=== PATIENT | male | born 1955 | race Caucasian/White ===

== ENCOUNTER → 2019-09-26 | Outpatient (CLI) | payer MEDICARE ==
[~2019-09-26] MED LIST: REGADENOSON 0.4 MG/5 ML SYRINGE IV ONE
--- NOTE | 2019-09-26 11:58 | NM ---
EXAMINATION TYPE: NM stress lexiscan cardiolite DATE OF EXAM: 09/26/2019 COMPARISON: NONE HISTORY: History of hypertension and diabetes with shortness of breath TECHNIQUE: After the intravenous administration of 10 mCi Tc 99m Sestamibi - Cardiolite resting SPEC T images acquired 45 minutes post injection. The patient received 0.4mg Lexiscan, 26.6 mCi Tc 99m Sestamibi - Stress images obtained [address] injection FINDINGS: Review of stress and rest SPECT images demonstrates no distinct perfusion diminished color intensity at stress versus rest images involving the lateral left ventricular wall mid to apical segments seen on short axis and horizontal long axis images. Gated analysis shows poor left ventricular ejection f raction estimated at 25-30% with several areas of hypokinesis. IMPRESSION: Abnormal study cannot exclude acute ischemia lateral left ventricular wall. Diminished ej ection fraction. Advise cardiac referral to consider catheter angiogram evaluation. A Yellow level critical message alert has been initiated for Eunice Hanna MD via the [employer] Critical Results System on 09/26/2019 11:56 AM. This message alert has been sent to Tommy Jackson via the preferences provided by the clinician for the receipt of Radiology Critical Findings. [facility] ID [id number].
--- NOTE | 2019-09-26 13:15 | EST ---
EXERCISE STRESS DATE OF SERVICE: 09/26/2019 AGE: 63 SEX: Male HT: 5'6" WT: 250 pounds PROTOCOL: Lexiscan Cardiolite STAGE: DURATION OF EXERCISE: HEART RATE REST: 97 BLOOD PRESSURE REST: 140/98 MAXIMUM HEART RATE ACHIEVED: 107 MAXIMUM BLOOD PRESSURE: 155/78 85% MPHR: 134 100% MPHR: 158 METS: INDICATIONS: CLINICAL INFORMATION: The patient was given Lexiscan over a period of 15 seconds. Peak heart rate of 107 was achieved. Maximum blood pressure 155/78 mmHg was noted. The resting EKG shows normal sinus rhythm with normal VT interval and QRS duration and normal ST-T waves. Occasional PACs are noted. FINAL IMPRESSION: There is no evidence of any ischemic changes on the electrocardiogram during Lexiscan injection. The results of the nuclear study will follow. XAVIER / EWELINA: [id number] /
--- NOTE | 2019-09-27 19:00 | ECHOF ---
Referral Reason:R06.02 shortness of breath MEASUREMENTS -------- HEIGHT: 167.6 cm WEIGHT: 113.4 kg BP: RVIDd: 3.4 cm (< 3.3) IVSd: 1.4 cm (0.6 - 1.1) LVIDd: 4.8 cm (3.9 - 5.3) LVPWd: 1.3 cm (0.6 - 1.1) IVSs: 2.0 cm LVIDs: 3.8 cm LVPWs: 2.0 cm LA Diam: 3.6 cm (2.7 - 3.8) LAESV Index (A-L): 32.99 ml/m Ao Diam: 4.2 cm (2.0 - 3.7) AV Cusp: 2.5 cm (1.5 - 2.6) MV EXCURSION: 19.783 mm (> 18.000) MV EF SLOPE: 61 mm/s (70 - 150) EPSS: 1.3 cm MV E Zoran: 0.80 m/s MV DecT: 177 ms MV A Zoran: 1.02 m/s MV E/A Ratio: 0.78 RAP: 5.00 mmHg RVSP: 43.71 mmHg TAPSE: 21.00 mm FINDINGS -------- Atrial fibrillation. This was a technically difficult study with suboptimal apical views. The left ventricular size is normal. There is moderate concentric left ventricular hypertrophy. O verall left ventricular systolic function is mild-moderately impaired with, an EF between 40 - 45 %. The right ventricle is mildly enlarged. LA is midly dilated 29-33ml/m2. The right atrium is normal in size. 5.0mg of Lumason was utilized for enhancement of images Interatrial and interventricular septum intact. The aortic valve is trileaflet and appears structurally normal. The mitral valve leaflets are mildly thickened. Mild mitral regurgitation is present. Trace tricuspid regurgitation present. There is mild pulmonary hypertension. The right ventricula r systolic pressure, as measured by Doppler, is 43.71mmHg. Trace/mild (physiologic) pulmonic regurgitation. The aortic root is dilated measuring 4.2cm. IVC Not well visulized. There is no pericardial effusion. CONCLUSIONS -------- 1. Atrial fibrillation. 2. This was a technically difficult study with suboptimal apical views. 3. The left ventricular size is normal. 4. There is moderate concentric left ventricular hypertrophy. 5. Overall left ventricular systolic function is mild-moderately impaired with, an EF between 40 - 45 %. 6. The right ventricle is mildly enlarged. 7. LA is midly dilated 29-33ml/m2. 8. The right atrium is normal in size. 9. 5.0mg of Lumason was utilized for enhancement of images 10. Interatrial and interventricular septum intact. 11. The aortic valve is trileaflet and appears structurally normal. 12. The mitral valve leaflets are mildly thickened. 13. Mild mitral regurgitation is present. 14. Trace tricuspid regurgitation present. 15. There is mild pulmonary hypertension. 16. The right ventricular systolic pressure, as measured by Doppler, is 43.71mmHg. 17. Trace/mild (physiologic) pulmonic regurgitation. 18. The aortic root is dilated measuring 4.2cm. 19. IVC Not well visulized. 20. There is no pericardial effusion. CATALYST IMPREGNATOR: Lian Landis RDCS
== END | disposition home or self-care (01) ==
LOC: RADNMMAIN 07:48
PROVIDERS: ATTEND Family Medicine
DX: R06.02 Shortness of breath (principal)
CPT/HCPCS: 93017; 78452; C8929; A9500; J2785; Q9950; 93306

== ENCOUNTER → 2019-09-28 | Day surgery (SDC) | payer MEDICARE ==
[~2019-09-28] MED LIST changes: +ADENOSINE 90 MG in SODIUM CHLORIDE 0.9% 60 ML IVP ONE; +ALPRAZolam 0.25 MG TAB PO PRN; +ALPRAZolam 0.5 MG TAB PO PRN; +ASPIRIN 325 MG TAB PO ONE; +ASPIRIN 81 MG PO SCH; +ATORVASTATIN 10 MG TAB PO SCH; +ATORVASTATIN 80 MG TAB PO ONE; +CARISOPRODOL 350 MG TAB PO PRN; +GLIMEPIRIDE 4 MG TAB PO SCH; +HEPARIN SODIUM 1,000 UN/ML (10ML VL) ONE; +INSULIN ASPART (NovoLOG) 100 UNIT/ML VIAL SQ SCH; +IOPAMIDOL-370 125ML BTL INJ ONE; +IOPAMIDOL-370 50ML BTL INJ ONE; +LIDOCAINE 1% INJ 10MG/ML (20 ML MDV) ONE; +LIDOCAINE 1% INJ 10MG/ML (20 ML MDV) SQ ONE; +LISINOPRIL 20 MG TAB PO SCH; +METOPROLOL SUCCINATE (ER) 50 MG TAB.ER.24H PO SCH; +MIDAZOLAM 2 MG/2 ML VIAL IV ONE; +NITROGLYCERIN SL TABS 0.4 MG TAB SUBLINGUAL PRN; +PIOGLITAZONE 30 MG TAB PO SCH; +PREGABALIN 100 MG CAP PO SCH; -REGADENOSON 0.4 MG/5 ML SYRINGE IV ONE; +RX INFO: IV CONTRAST WAS GIVEN 1 EACH MISC MISCELLANE PRN; +SODIUM CHLORIDE 0.9% 1,000 ML IV SCH; +SODIUM CHLORIDE 0.9% 1,000 ML in EMPTY BAG 1 BAG IV ONE; +TESTOSTERONE CYPIONATE 200 MG/ML 1ML VIAL IM SCH; +VERAPAMIL 2.5 MG/ML 2 ML AMP ONE; +buPROPion SR 100 MG TABLET.ER PO SCH; +fentaNYL (PF) 50 MCG/ML 2 ML AMP IV ONE; +fentaNYL (PF) 50 MCG/ML 2 ML AMP ONE
[2019-09-28 11:14] VITALS: RESP 16; TEMP 97.9
[2019-09-28 11:24] LABS: Glucose,Whole Blood 267 mg/dL (75-99)
[2019-09-28 11:46] LABS: Basophils % (A) 0 %; Eosinophils % (A) 0 %; HGB 15.7 gm/dL (13.0-17.5); Lymphocytes # (A) 1.2 k/uL (1.0-4.8); Lymphocytes % (A) 10 %; MCH 29.7 pg (25.0-35.0); MCHC 33.3 g/dL (31.0-37.0); MCV 89.2 fL (80.0-100.0); Mean Platelet Volume 9.8; Monocytes # (A) 0.3 k/uL (0-1.0); Monocytes % (A) 3 %; Neutrophils # (A) 10.9 k/uL (1.3-7.7); Neutrophils % (A) 87 %; Platelet Count 233 k/uL (150-450); RBC 5.27 m/uL (4.30-5.90); RDW 13.7 % (11.5-15.5); WBC 12.6 k/uL (3.8-10.6)
[2019-09-28 11:57] LABS: African American GFR (CKD) >90 (>60 ml/min/1.73 sqM); Anion Gap 14 mmol/L; Blood Urea Nitrogen 9 mg/dL (9-20); Calcium 9.9 mg/dL (8.4-10.2); Carbon Dioxide 24 mmol/L (22-30); Chloride 100 mmol/L (98-107); Glucose 289 mg/dL (74-99); Non-African American GFR(CKD) >90 (>60 ml/min/1.73 sqM); Potassium 4.2 mmol/L (3.5-5.1); Sodium 138 mmol/L (137-145)
[2019-09-28 18:06] VITALS: BP 158/89; PULSE 104
--- NOTE | 2019-09-28 18:23 | CC ---
CARDIAC CATHETERIZATION REPORT Mr. Perez is a 63-year-old male with known history of hypertension, hyperlipidemia and diabetes mellitus who has been complaining of dyspnea on exertion. He underwent myocardial perfusion imaging that revealed lateral wall ischemia as well as impairment of left ventricular systolic function. In view of that, recommendation was made regarding angioplasty and stenting. The procedure, its risks and complications were discussed with the patient, who was in full understanding and agreement. PROCEDURE DESCRIPTION: The patient was brought to the slab depiler operator in a fasting, semi-sedated state after receiving fentanyl and Benadryl and achieving a moderate conscious sedated state. Using Xylocaine anesthesia and Seldinger technique, a 6-Emirati sheath was introduced in the right radial artery. Selective right and left coronary angiography was performed using 5-Emirati 3-1/2 bend right and left Klarissa catheters. Multiple views were taken of the coronary arteries, including hemiaxial views. Following that, a 6-Emirati FL3.5 guiding catheter was introduced and fractional flow reserve was performed. Following that, a 5-Emirati tight pigtail catheter was introduced into the left ventricle and a 30- degree SÁNCHEZ view of the left ventricle was obtained. Following that, catheter and sheaths were removed. Hemostasis was obtained with deployment of a TR band. There was no immediate complication. Patient was returned to his room in stable condition. Of note, the patient received 5000 units of intravenous heparin as well as intra-arterial verapamil. There was no immediate complication. FINDINGS: LEFT MAIN: This is a large-sized vessel bifurcating into left circumflex and left anterior descending artery. Left main coronary artery has no evidence of high-grade stenosis. LEFT ANTERIOR DESCENDING ARTERY: This is a large-sized vessel reaching toward the apex with a wrap around apex segment giving rise to 2 diagonal branches. The left anterior descending artery proximally has an eccentric 50% to 60% stenosis. The rest of the vessel has no high-grade stenosis. LEFT CIRCUMFLEX: This is a large nondominant vessel giving rise to a large obtuse marginal branch that has no evidence of high-grade stenosis. RIGHT CORONARY ARTERY: This is a large dominant vessel bifurcating distally into PDA and posterolateral segment and branches. The right coronary artery has no evidence of high-grade stenosis. LEFT VENTRICULOGRAM: Left ventriculogram was performed in 30-degree SÁNCHEZ view and revealed a normal left ventricular size. The ejection fraction is estimated at 50%. There was no significant mitral regurgitation. FRACTIONAL FLOW RESERVE: Fractional flow reserve and iFR of the LAD were measured per protocol. The iFR was 0.92 and the FFR was 0.92, consistent with non-hemodynamically significant lesion. CONCLUSION: 1. Moderate disease in the proximal LAD with normal fractional flow reserve. 2. Mildly impaired left ventricular systolic function. RECOMMENDATIONS: In view of findings and anatomy, I have recommended continued medical therapy with the aggressive coronary risk modifications that have been initiated. Those findings and recommendations were discussed with the patient and his family, who are in full understanding and agreement. Duration of procedure ws 40 minutes. MMJANETL / IJN: [id number] /
--- NOTE | 2019-09-28 18:24 | LTR ---
September 28, 2019 To: Dr. Eunice Hanna Re: Morgan Perez (57) Dear Dr. Hanna, I had the pleasure of performing cardiac catheterization on Mr. Perez at [facility] on September 27, and a full copy of the procedure note will be forwarded to you. In brief, he was found to have moderate disease in the ostium of the LAD and subsequently underwent a fractional flow reserve measurement that showed evidence of non-hemodynamically significant lesion. Based on those findings, I will continue medical therapy with the aggressive coronary risk modifications that have been initiated. Depending on his progress, further recommendations will be made. Thank you again for allowing me to participate in his care. Please feel free to call with any questions. Sincerely yours, Randell Oliva M.D. XAVIER / EWELINA: [id number] /
== END | disposition home or self-care (01) ==
LOC: CATHCVL 10:50
PROVIDERS: ATTEND Internal Medicine Interventional Cardiology
DX: I25.10 Atherosclerotic heart disease of native coronary artery without angina pectoris (principal); I42.8 Other cardiomyopathies; I10 Essential (primary) hypertension; E78.2 Mixed hyperlipidemia; E11.9 Type 2 diabetes mellitus without complications; E78.00 Pure hypercholesterolemia, unspecified; R26.2 Difficulty in walking, not elsewhere classified; M54.9 Dorsalgia, unspecified; M25.50 Pain in unspecified joint; E66.9 Obesity, unspecified; R01.1 Cardiac murmur, unspecified; Z68.41 Body mass index [BMI] 40.0-44.9, adult; Z91.048 Other nonmedicinal substance allergy status; Z88.0 Allergy status to penicillin; Z79.82 Long term (current) use of aspirin; Z79.84 Long term (current) use of oral hypoglycemic drugs; Z79.899 Other long term (current) drug therapy; Z79.52 Long term (current) use of systemic steroids
CPT/HCPCS: 93571; 93458; 80048; 85025; C1769 ×3; C1887; C1894; J2250; J2001; J3010; J0153; J1644; Q9967 ×2

== ENCOUNTER 2024-01-26 06:53 | Day surgery (SDC) | payer MEDICARE ==
[2024-01-21 11:18] VITALS: BMI 39.9
[2024-01-26 07:27] VITALS: RESP 16; TEMP 98.2
[2024-01-26] MEDS: LACTATED RINGERS 1,000 ML IV SCH (07:33)
[2024-01-26] MEDS: LIDOCAINE 1% (10MG/ML) FOR IV START INTRADERMA ONE (07:34)
[2024-01-26] MEDS: IV FLUID CONTINUATION 1,000 ML IV ONE (07:34)
[2024-01-26 07:46] LABS: Glucose,Whole Blood 97 mg/dL (70-110)
[2024-01-26] MEDS ORDERED: PROPOFOL 10 MG/ML 20 ML VIAL IV ONE (08:11)
--- NOTE | 2024-01-26 08:28 | P.PCN ---
Date of Procedure: 01/26/24 Procedure(s) Performed: BRIEF HISTORY: Patient is a 68-year-old pleasant white male scheduled for an elective colonoscopy as a part of screening for colon cancer/positive Cologuard. PROCEDURE PERFORMED: Colonoscopy. PREOPERATIVE DIAGNOSIS: Screening for colon cancer/positive cologuard. IV sedation per Anesthesia. PROCEDURE: After informed consent was obtained, the patient, was brought into the endoscopy unit. IV sedation was administered by Anesthesia under continuous monitoring. Digital rectal examination was normal. Initially the Olympus CF-160 flexible video colonoscope was then inserted in the rectum, gradually advanced into the cecum without any difficulty. Careful examination was performed as the scope was gradually being withdrawn. Ileocecal valve and the appendiceal orifice were visualized and appeared normal. Prep was excellent. Mucosa of the cecum, ascending colon, transverse colon, descending colon, sigmoid colon, and rectum appeared normal. Scattered sigmoid diverticulosis retroflexion was performed in the rectum and no lesions were seen. The patient tolerated the procedure well. IMPRESSION: Normal-appearing colon from rectum to cecum with no evidence of colorectal neoplasia. Scattered sigmoid diverticulosis. RECOMMENDATIONS: Findings of this examination were discussed with the patient as well as his family. He was advised to have repeat screening colonoscopy in 10 years..
[2024-01-26 08:57] VITALS: BP 127/64; PULSE 87
== END 2024-01-26 09:17 | disposition home or self-care (01) ==
LOC: ORWHC2ENDO 06:53
PROVIDERS: ATTEND Internal Medicine Gastroenterology
DX: K57.30 Diverticulosis of large intestine without perforation or abscess without bleeding (principal); I10 Essential (primary) hypertension; E78.5 Hyperlipidemia, unspecified; G47.33 Obstructive sleep apnea (adult) (pediatric); E11.9 Type 2 diabetes mellitus without complications; E66.01 Morbid (severe) obesity due to excess calories; F32.A Depression, unspecified; Z79.84 Long term (current) use of oral hypoglycemic drugs; Z79.899 Other long term (current) drug therapy; Z88.8 Allergy status to other drugs, medicaments and biological substances; Z88.0 Allergy status to penicillin; Z90.49 Acquired absence of other specified parts of digestive tract; Z98.890 Other specified postprocedural states; Z68.39 Body mass index [BMI] 39.0-39.9, adult
CPT/HCPCS: 45378; J2704